=== PATIENT | male | born 1985 | race Caucasian/White ===

== ENCOUNTER 2017-05-18 17:45 | Emergency (ER) | payer SELFPAY ==
[2017-05-18 18:21] VITALS: BP 134/89
[2017-05-18] MEDS ORDERED: SULFAMETHOXAZOLE/TRIMETHOPRIM 800-160 MG TABLET PO ONE (19:27)
[2017-05-18] MEDS ORDERED: CEPHALEXIN 500 MG CAPSULE PO ONE (19:27)
[2017-05-18] MEDS ORDERED: HYDROCODONE/ACETAMINOPHEN 5-325 MG TABLET PO ONE (19:28)
--- NOTE | 2017-05-18 20:18 | RADIOLOGY REPORT (SQ) ---
EXAM DESCRIPTION: FOOT RIGHT COMPLETE COMPLETED DATE/TIME: 05/18/2017 7:43 pm REASON FOR STUDY: foreign body sole of foot COMPARISON: None. NUMBER OF VIEWS: Three views. TECHNIQUE: AP, lateral and oblique radiographic images acquired of the right foot. LIMITATIONS: None. FINDINGS: MINERALIZATION: Normal. BONES: No acute fracture or dislocation. No worrisome bone lesions. JOINTS: No effusions. SOFT TISSUES: Mild plantar soft tissue swelling. No radiopaque foreign body. OTHER: No other significant finding. IMPRESSION: Mild plantar soft tissue swelling. No radiopaque foreign body. TECHNICAL DOCUMENTATION: JOB ID: [id number] [employer]- All Rights Reserved
--- NOTE | 2017-05-18 20:48 | ER Document Report ---
ED General - General Chief Complaint: Foreign Body Stated Complaint: LEFT FOOT PAIN Time Seen by Provider: 05/18/17 19:19 Mode of Arrival: Ambulatory Information source: Patient Notes: 32-year-old male presents with complaints of foot pain. Patient notes he stepped on something a few days prior believes he may have been glass and he has been cutting into his foot with a razor. Patient notes the pain is since worsened TRAVEL OUTSIDE OF THE [place] IN LAST 30 DAYS: No - HPI Onset: Other Onset/Duration: Persistent, Worse Quality of pain: Achy Severity: Mild Pain Level: 1 Associated symptoms: Other Exacerbated by: Walking Relieved by: Denies Similar symptoms previously: No Recently seen / treated by doctor: No - Related Data Allergies/Adverse Reactions: No Known Allergies Allergy (Verified 08/09/16 10:23) Past Medical History - Social History Smoking Status: Current Every Day Smoker Cigarette use (# per day): Yes Chew tobacco use (# tins/day): No Smoking Education Provided: No Frequency of alcohol use: Rare Drug Abuse: None Family History: Reviewed & Not Pertinent Renal/ Medical History: Denies: Hx Peritoneal Dialysis Musculoskeltal Medical History: Reports Hx Musculoskeletal Trauma Traumatic Medical History: Reports: Hx Fractures - right heel and left elbow Surgical Hx: Negative - Immunizations Immunizations up to date: Yes Hx Diphtheria, Pertussis, Tetanus Vaccination: Yes - 2014 Review of Systems - Review of Systems Notes: REVIEW OF SYSTEMS: CONSTITUTIONAL : Denies fever, chills, or sweats. Denies recent illness. EENT: Denies eye, ear, throat, or mouth pain or symptoms. Denies nasal or sinus congestion or discharge. Denies throat, tongue, or mouth swelling or difficulty swallowing. CARDIOVASCULAR: Denies chest pain. Denies palpitations or racing or irregular heart beat. Denies ankle edema. RESPIRATORY: Denies cough, cold, or chest congestion. Denies shortness of breath, difficulty breathing, or wheezing. GASTROINTESTINAL: Denies abdominal pain or distention. Denies nausea, vomiting , or diarrhea. Denies blood in vomitus, stools, or per rectum. Denies black, tarry stools. Denies constipation. GENITOURINARY: Denies difficulty urinating, painful urination, burning, frequency, blood in urine, or discharge. MUSCULOSKELETAL: Denies back or neck pain or stiffness. Denies joint pain or swelling. SKIN: Redness of the right foot HEMATOLOGIC : Denies easy bruising or bleeding. LYMPHATIC: Denies swollen, enlarged glands. NEUROLOGICAL: Denies confusion or altered mental status. Denies passing out or loss of consciousness. Denies dizziness or lightheadedness. Denies headache. Denies weakness or paralysis or loss of use of either side. Denies problems with gait or speech. Denies sensory loss, numbness, or tingling. Denies seizures. PSYCHIATRIC: Denies anxiety or stress. Denies depression, suicidal ideation, or homicidal ideation. ALL OTHER SYSTEMS REVIEWED AND NEGATIVE. Dictation was performed using [employer] voice recognition software PHYSICAL EXAMINATION: GENERAL: Well-appearing, well-nourished and in no acute distress. HEAD: Atraumatic, normocephalic. EYES: Pupils equal round and reactive to light, extraocular movements intact, sclera anicteric, conjunctiva are normal. ENT: Nares patent, oropharynx clear without exudates. Moist mucous membranes. NECK: Normal range of motion, supple without lymphadenopathy LUNGS: Breath sounds clear to auscultation bilaterally and equal. No wheezes rales or rhonchi. HEART: Regular rate and rhythm without murmurs ABDOMEN: Soft, nontender, nondistended abdomen. No guarding, no rebound. No masses appreciated. Musculoskeletal: Normal range of motion, no pitting or edema. No cyanosis. NEUROLOGICAL: Cranial nerves grossly intact. Normal speech, normal gait. Normal sensory, motor exams PSYCH: Normal mood, normal affect. SKIN: Superficial ulceration of the right foot with streaking to the ankle Physical Exam - Vital signs Vitals: Temp Pulse BP Pulse Ox 98.3 F 86 134/89 H 97 05/18/17 18:21 05/18/17 18:21 05/18/17 18:21 05/18/17 18:21 Course - Re-evaluation Re-evalutation: 05/18/17 21:11 Area was anesthetized explored no foreign body was noted incision was made small amount of pus was drained Patient will be placed on antibiotics x-ray noted no foreign body he will be given follow-up with podiatry for further evaluation care After performing a Medical Screening Examination, I estimate there is LOW risk for OPEN FRACTURE, COMPARTMENT SYNDROME, TENDON RUPTURE, ACUTE NEUROVASCULAR INJURY, or RETAINED FOREIGN BODY, thus I consider the discharge disposition reasonable. Also, there is no evidence or peritonitis, sepsis, or toxicity. I have reevaluated this patient multiple times and no significant life threatening changes are noted. The patient and I have discussed the diagnosis and risks, and we agree with discharging home with close follow-up with the understanding that symptoms and presentations can change. We also discussed returning to the Emergency Department immediately if new or worsening symptoms occur. We have discussed the symptoms which are most concerning (e.g., changing or worsening pain, fever, numbness, weakness, cool or painful digits) that necessitate immediate return. - Vital Signs Vital signs: Temp Pulse Resp BP Pulse Ox 98.3 F 86 134/89 H 97 05/18/17 18:21 05/18/17 18:21 05/18/17 18:21 05/18/17 18:21 - Diagnostic Test Radiology reviewed: Image reviewed, Reports reviewed Procedures - Incision and Drainage Right Foot Time completed: 21:00 Type: Simple Anesthetic type: 1% Lidocaine mL's of anesthetic: 15 Blade size: 11 I&D procedure: Sterile dressing applied Incision Method: Incision made by scalpel Amount/type of drainage: Small amount of pus with blood Discharge - Discharge Clinical Impression: Cellulitis Qualifiers: Site of cellulitis: extremity Site of cellulitis of extremity: lower extremity Laterality: right Qualified Code(s): L03.115 - Cellulitis of right lower limb Foot injury Qualifiers: Encounter type: initial encounter Laterality: right Qualified Code(s): S99.921A - Unspecified injury of right foot, initial encounter Condition: Stable Disposition: HOME, SELF-CARE Instructions: Cellulitis ([facility]) Prescriptions: Cephalexin Monohydrate [Keflex 500 mg Capsule] 500 mg PO QID #40 capsule Oxycodone HCl/Acetaminophen [Percocet 5-325 mg Tablet] 1 - 2 tab PO Q4H PRN #15 tablet PRN Reason: Sulfamethoxazole/Trimethoprim [Bactrim Ds Tablet] 2 each PO BID #40 tablet Referrals: HERBERT CARTER DPM [ACTIVE STAFF] - Follow up tomorrow
== END 2017-05-18 20:55 | disposition home or self-care (01) ==
LOC: ER 17:45
PROC: 0H9MXZZ Drainage of Right Foot Skin, External Approach (ICD-10-PCS; principal; 2017-05-18)
DX: L03.115 Cellulitis of right lower limb (principal); S99.921A Unspecified injury of right foot, initial encounter; W22.09XA Striking against other stationary object, initial encounter; F17.210 Nicotine dependence, cigarettes, uncomplicated
CPT/HCPCS: 99283

== ENCOUNTER 2017-05-24 18:26 | Emergency (ER) | payer SELFPAY ==
--- NOTE | 2017-05-24 19:39 | ER Document Report ---
ED Medical Screen (RME) - General Chief Complaint: Foot Pain Stated Complaint: POSSIBLE INFECTION IN LEG Time Seen by Provider: 05/24/17 19:38 Notes: seen by Dr. Mancia and had I and D on the 5th. was doing better till this am when swelling/pain returned. TRAVEL OUTSIDE OF THE [place] IN LAST 30 DAYS: No - Related Data Allergies/Adverse Reactions: No Known Allergies Allergy (Verified 05/24/17 19:31) Past Medical History - Social History Chew tobacco use (# tins/day): No Frequency of alcohol use: Occasional Drug Abuse: None Renal/ Medical History: Denies: Hx Peritoneal Dialysis Musculoskeltal Medical History: Reports Hx Musculoskeletal Trauma Traumatic Medical History: Reports: Hx Fractures - right heel and left elbow - Immunizations Immunizations up to date: Yes Hx Diphtheria, Pertussis, Tetanus Vaccination: Yes - 2014 History of Influenza Vaccine for 05/2017 - 10/2017 Season: No Physical Exam - Vital signs Vitals: Temp Pulse Resp BP Pulse Ox 98.4 F 103 H 14 122/80 99 05/24/17 18:34 05/24/17 18:34 05/24/17 18:34 05/24/17 18:34 05/24/17 18:34 Course - Vital Signs Vital signs: Temp Pulse Resp BP Pulse Ox 98.4 F 103 H 14 122/80 99 05/24/17 18:34 05/24/17 18:34 05/24/17 18:34 05/24/17 18:34 05/24/17 18:34
[2017-05-24] MEDS ORDERED: LIDOCAINE 1% INJ-PF (10 MG/ML) 30 ML SDV INJ ONE (21:10)
--- NOTE | 2017-05-24 21:29 | ER Document Report ---
ED General - General Chief Complaint: Foot Pain Stated Complaint: POSSIBLE INFECTION IN LEG Time Seen by Provider: 05/24/17 19:38 Mode of Arrival: Ambulatory Information source: Patient Notes: 32-year-old male presents with complaints of right foot pain. Patient was seen by myself approximately 6 days ago at which time incision and drainage was made and patient was started on antibiotics. He notes symptoms have completely resolved and he did not follow-up with podiatry as I had requested since he was asymptomatic however today he had sudden pain and redness again. Patient denies any fevers denies any new infectious process TRAVEL OUTSIDE OF THE [place] IN LAST 30 DAYS: No - HPI Onset: Other Onset/Duration: Intermittent, Worse Quality of pain: Sharp Severity: Mild Pain Level: 1 Associated symptoms: None Exacerbated by: Walking Relieved by: Denies Similar symptoms previously: Yes Recently seen / treated by doctor: Yes - Related Data Allergies/Adverse Reactions: No Known Allergies Allergy (Verified 05/24/17 19:31) Past Medical History - Social History Smoking Status: Never Smoker Cigarette use (# per day): No Chew tobacco use (# tins/day): No Smoking Education Provided: No Frequency of alcohol use: Occasional Drug Abuse: None Family History: Reviewed & Not Pertinent Renal/ Medical History: Denies: Hx Peritoneal Dialysis Musculoskeltal Medical History: Reports Hx Musculoskeletal Trauma Traumatic Medical History: Reports: Hx Fractures - right heel and left elbow - Immunizations Immunizations up to date: Yes Hx Diphtheria, Pertussis, Tetanus Vaccination: Yes - 2014 Review of Systems - Review of Systems Notes: REVIEW OF SYSTEMS: CONSTITUTIONAL : Denies fever, chills, or sweats. Denies recent illness. EENT: Denies eye, ear, throat, or mouth pain or symptoms. Denies nasal or sinus congestion or discharge. Denies throat, tongue, or mouth swelling or difficulty swallowing. CARDIOVASCULAR: Denies chest pain. Denies palpitations or racing or irregular heart beat. Denies ankle edema. RESPIRATORY: Denies cough, cold, or chest congestion. Denies shortness of breath, difficulty breathing, or wheezing. GASTROINTESTINAL: Denies abdominal pain or distention. Denies nausea, vomiting , or diarrhea. Denies blood in vomitus, stools, or per rectum. Denies black, tarry stools. Denies constipation. GENITOURINARY: Denies difficulty urinating, painful urination, burning, frequency, blood in urine, or discharge. MUSCULOSKELETAL: Denies back or neck pain or stiffness. Denies joint pain or swelling. SKIN: Pain redness on the sole midfoot right HEMATOLOGIC : Denies easy bruising or bleeding. LYMPHATIC: Denies swollen, enlarged glands. NEUROLOGICAL: Denies confusion or altered mental status. Denies passing out or loss of consciousness. Denies dizziness or lightheadedness. Denies headache. Denies weakness or paralysis or loss of use of either side. Denies problems with gait or speech. Denies sensory loss, numbness, or tingling. Denies seizures. PSYCHIATRIC: Denies anxiety or stress. Denies depression, suicidal ideation, or homicidal ideation. ALL OTHER SYSTEMS REVIEWED AND NEGATIVE. Dictation was performed using [employer] voice recognition software PHYSICAL EXAMINATION: GENERAL: Well-appearing, well-nourished and in no acute distress. HEAD: Atraumatic, normocephalic. EYES: Pupils equal round and reactive to light, extraocular movements intact, sclera anicteric, conjunctiva are normal. ENT: Nares patent, oropharynx clear without exudates. Moist mucous membranes. NECK: Normal range of motion, supple without lymphadenopathy LUNGS: Breath sounds clear to auscultation bilaterally and equal. No wheezes rales or rhonchi. HEART: Regular rate and rhythm without murmurs ABDOMEN: Soft, nontender, nondistended abdomen. No guarding, no rebound. No masses appreciated. Musculoskeletal: Normal range of motion, no pitting or edema. No cyanosis. NEUROLOGICAL: Cranial nerves grossly intact. Normal speech, normal gait. Normal sensory, motor exams PSYCH: Normal mood, normal affect. SKIN: Midfoot right sole noted to be erythematous mild streaking to the lateral aspect of the bottom of the foot Physical Exam - Vital signs Vitals: Temp Pulse Resp BP Pulse Ox 98.4 F 103 H 14 122/80 99 05/24/17 18:34 05/24/17 18:34 05/24/17 18:34 05/24/17 18:34 05/24/17 18:34 Course - Re-evaluation Re-evalutation: 05/25/17 00:17 Area was anesthetized incised and drained, small amount of pus was noted. I did irrigate with soap and water extensively, the wound itself is deeper now than it was before but there was no bony involvement on palpation of. I again was unable to find a foreign body, patient will be placed on doxycycline and instructed that he must follow-up with podiatry nonetheless as I am concerned this can worsen. Patient states he understands and will do so this time After performing a Medical Screening Examination, I estimate there is LOW risk for OPEN FRACTURE, COMPARTMENT SYNDROME, TENDON RUPTURE, ACUTE NEUROVASCULAR INJURY, or RETAINED FOREIGN BODY, thus I consider the discharge disposition reasonable. Also, there is no evidence or peritonitis, sepsis, or toxicity. I have reevaluated this patient multiple times and no significant life threatening changes are noted. The patient and I have discussed the diagnosis and risks, and we agree with discharging home with close follow-up with the understanding that symptoms and presentations can change. We also discussed returning to the Emergency Department immediately if new or worsening symptoms occur. We have discussed the symptoms which are most concerning (e.g., changing or worsening pain, fever, numbness, weakness, cool or painful digits) that necessitate immediate return. - Vital Signs Vital signs: Temp Pulse Resp BP Pulse Ox 98.2 F 96 18 126/83 H 100 05/24/17 22:45 05/24/17 22:45 05/24/17 22:45 05/24/17 22:45 05/24/17 22:45 Procedures - Incision and Drainage Right Foot Time completed: 22:00 Type: Simple Anesthetic type: 1% Lidocaine mL's of anesthetic: 10 Blade size: 11 I&D procedure: Betadine prep applied, Chlorprep applied, Sterile dressing applied Incision Method: Incision made by scalpel Amount/type of drainage: Small amount of pus Discharge - Discharge Clinical Impression: Cellulitis Qualifiers: Site of cellulitis: extremity Site of cellulitis of extremity: lower extremity Laterality: right Qualified Code(s): L03.115 - Cellulitis of right lower limb Foot injury Qualifiers: Encounter type: initial encounter Laterality: right Qualified Code(s): S99.921A - Unspecified injury of right foot, initial encounter Condition: Stable Disposition: HOME, SELF-CARE Instructions: Cellulitis ([facility]) Prescriptions: Doxycycline Hyclate 100 mg PO BID #20 capsule Oxycodone HCl/Acetaminophen [Percocet 5-325 mg Tablet] 1 - 2 tab PO Q4H PRN #15 tablet PRN Reason: Referrals: HERBERT CARTER DPM [ACTIVE STAFF] - Follow up tomorrow
[2017-05-24] MEDS ORDERED: CLINDAMYCIN HCL 150 MG CAPSULE PO ONE (22:42)
[2017-05-24] MEDS ORDERED: DOXYCYCLINE HYCLATE 100 MG TABLET PO ONE (22:43)
[2017-05-24 23:09] VITALS: BP 126/83
== END 2017-05-24 23:11 | disposition home or self-care (01) ==
LOC: ER 18:26
PROC: 0H9MXZZ Drainage of Right Foot Skin, External Approach (ICD-10-PCS; principal; 2017-05-24)
DX: S99.921A Unspecified injury of right foot, initial encounter (principal); L03.115 Cellulitis of right lower limb; M79.671 Pain in right foot; X58.XXXA Exposure to other specified factors, initial encounter
CPT/HCPCS: 99283

== ENCOUNTER 2017-05-26 13:32 | Observation (INO) | payer SELFPAY ==
--- NOTE | 2017-05-26 16:21 | ER Document Report ---
ED Medical Screen (RME) - General Mode of Arrival: Ambulatory Information source: Patient TRAVEL OUTSIDE OF THE [place] IN LAST 30 DAYS: No <PRISCILLA MELENDEZ - Last Filed: 05/26/17 17:57> <MELISSA TAYLOR - Last Filed: 05/26/17 21:05> - General Chief Complaint: Foot Pain Stated Complaint: RT FOOT PAIN Time Seen by Provider: 05/26/17 16:00 Notes: Patient reports to the emergency department today with complaints of right foot pain. Patient [place] the [place] and stepped on something but he does not know what it was. Patient was seen here 1 week ago put on Bactrim and Keflex and the wound was explored with no foreign body removed. Patient was seen again 2 days ago secondary to increasing pain and swelling, wound was explored again and again no foreign body was found, patient was switched on to doxycycline. Patient states he has been taking his antibiotics as prescribed. Patient states it is a little more swollen and a little more red than two days ago. (PRISCILLA MELENDEZ) - Related Data Allergies/Adverse Reactions: No Known Allergies Allergy (Verified 05/26/17 15:51) Past Medical History - General Information source: Patient - Social History Cigarette use (# per day): No Chew tobacco use (# tins/day): No Frequency of alcohol use: None Drug Abuse: None Lives with: Family Family history: Reviewed & Not Pertinent Musculoskeltal Medical History: Reports Hx Musculoskeletal Trauma Traumatic Medical History: Reports: Hx Fractures - right heel and left elbow Surgical Hx: Negative - Immunizations Immunizations up to date: Yes Hx Diphtheria, Pertussis, Tetanus Vaccination: Yes - 2014 History of Influenza Vaccine for 05/2017 - 10/2017 Season: No <PRISCILLA MELENDEZ - Last Filed: 05/26/17 17:57> Review of Systems - Review of Systems Constitutional: No symptoms reported EENT: No symptoms reported Cardiovascular: No symptoms reported Respiratory: No symptoms reported Gastrointestinal: No symptoms reported Genitourinary: No symptoms reported Male Genitourinary: No symptoms reported Musculoskeletal: No symptoms reported Skin: See HPI, Other - lac to right bottom of foot Hematologic/Lymphatic: No symptoms reported Neurological/Psychological: No symptoms reported -: Yes All other systems reviewed and negative <PRISCILLA MELENDEZ - Last Filed: 05/26/17 17:57> Physical Exam <PRISCILLA MELENDEZ - Last Filed: 05/26/17 17:57> <MELISSA TAYLOR - Last Filed: 05/26/17 21:05> - Vital signs Vitals: Temp Pulse Resp BP Pulse Ox 98.8 F 109 H 16 123/89 H 99 05/26/17 14:08 05/26/17 14:08 05/26/17 14:08 05/26/17 14:08 05/26/17 14:08 - Notes Notes: Physical Exam: General: Alert, appears well. HEENT: Normocephalic. Atraumatic. PERRLA. Extraocular movements intact. Oropharynx clear. Neck: Supple. Respiratory: No respiratory distress. Abdominal: Normal Inspection. No distension. Extremities: Moves all four extremities. Right Neurological: Normal cognition. AAOx4. Normal speech. Psychological: Normal affect. Normal Mood. Skin: Area to bottom of right foot with swelling, recent incision, no drainage. (PRISCILLA MELENDEZ) Course - Laboratory Result Diagrams: 05/26/17 16:30 05/26/17 16:30 <PRISCILLA MELENDEZ - Last Filed: 05/26/17 17:57> - Laboratory Result Diagrams: 05/26/17 19:52 05/26/17 17:35 <MELISSA TAYLOR - Last Filed: 05/26/17 21:05> - Vital Signs Vital signs: Temp Pulse Resp BP Pulse Ox 98.8 F 109 H 16 123/89 H 99 05/26/17 14:08 05/26/17 14:08 05/26/17 14:08 05/26/17 14:08 05/26/17 14:08 - Laboratory Laboratory results interpreted by me: 05/26/17 19:52 WBC 12.8 H Scribe Documentation - Scribe Written by Scribe:: Santhosh Kerr, 05/26/2017 1807 acting as scribe for :: Al <PRISCILLA MELENDEZ - Last Filed: 05/26/17 17:57>
[2017-05-26] MEDS ORDERED: CEFTRIAXONE 1 GM/D5W RTU 1 GM/50 ML RTUPB IV ONE (16:22)
--- NOTE | 2017-05-26 18:11 | RADIOLOGY REPORT (SQ) ---
EXAM DESCRIPTION: CT RT LOWER EXTREMITY WITH COMPLETED DATE/TIME: 05/26/2017 5:55 pm REASON FOR STUDY: CT foot due to worsening infection COMPARISON: Radiograph from 05/18/2017 TECHNIQUE: Axial imaging performed through the right foot with reformatted coronal and sagittal imag ing windowed for bone and soft tissues. Images saved to PACS. 3D IMAGING: Were 3D images as MIP, SSD, or volume rendering performed at the work station? No. All CT scanners at this facility use dose modulation, iterative reconstruction, and/or weight based d osing when appropriate to reduce radiation dose to as low as reasonably achievable (ALARA). [facility]: Dose Right [facility]: CareDose [facility]: Dose Right [facility]: Teradose 4D [facility]: [employer] LIMITATIONS: None. RADIATION DOSE: Up-to-date CT equipment and radiation dose reduction techniques were employed. CTDIv ol: 4.1 mGy. DLP: 111 mGy-cm. mGy. FINDINGS: SOFT TISSUES: Diffuse subcutaneous edema involving the plantar aspect of the foot. No def inite abscess/drainable fluid collection. No soft tissue mass. BONES: No acute fracture. No dislocation. MINERALIZATION: Normal. OTHER: No other significant finding. IMPRESSION: NO ACUTE OSSEOUS ABNORMALITY. SUBCUTANEOUS EDEMA COMPATIBLE WITH HISTORY OF CELLULITIS. NO DEFINITE DRAINABLE FLUID COLLECTION/ABS CESS. TECHNICAL DOCUMENTATION: JOB ID: [id number] Quality ID # [id number]: Final reports with documentation of one or more dose reduction techniques (e.g., Au tomated exposure control, adjustment of the mA and/or kV according to patient size, use of iterative reconstruction technique) 2010 [employer]- All Rights Reserved
[2017-05-26 18:19] LABS: ANION GAP 10 (5-19); BLOOD UREA NITROGEN 18 mg/dL (7-20); CALCIUM 9.5 mg/dL (8.4-10.2); CARBON DIOXIDE 28 mmol/L (22-30); CHLORIDE 104 mmol/L (98-107); CREATININE RESULT 0.97 mg/dL (0.52-1.25); GLUCOSE 96 mg/dL (75-110); POTASSIUM 4.8 mmol/L (3.6-5.0); SODIUM 142.1 mmol/L (137-145)
[2017-05-26] MEDS ORDERED: VANCOMYCIN HCL INJ 1000 MG VIAL IV ONE (18:38)
--- NOTE | 2017-05-26 18:41 | ER Document Report ---
ED General - General Chief Complaint: Foot Pain Stated Complaint: RT FOOT PAIN Time Seen by Provider: 05/26/17 16:00 Mode of Arrival: Ambulatory Notes: Patient is a 32-year-old male without past medical history who presents for the third time in 9 days for ongoing pain to the right lower extremity. Patient was seen initially on 18 May for possible puncture wound to the bottom of the right foot [place]. He was placed on antibiotics at that time and initially had improvement of symptoms but then again had progressive worsening of his symptoms and re-presented to the emergency department 2 days ago. At that point he was started on doxycycline but states that he is continued to have worsening of his pain, spreading of the redness on the foot and has had hot and cold sweats. He has not had similar symptoms in the past. He has no history of diabetes or peripheral vascular disease. Does describe the pain as a severe, constant, dull, aching pain worsened by attempts at bearing weight. Nothing improves the pain. TRAVEL OUTSIDE OF THE [place] IN LAST 30 DAYS: No - Related Data Allergies/Adverse Reactions: No Known Allergies Allergy (Verified 05/26/17 15:51) Past Medical History - General Information source: Patient - Social History Smoking Status: Current Every Day Smoker Cigarette use (# per day): No Chew tobacco use (# tins/day): No Frequency of alcohol use: None Drug Abuse: None Lives with: Family Family History: Reviewed & Not Pertinent Patient has suicidal ideation: No Patient has homicidal ideation: No Renal/ Medical History: Denies: Hx Peritoneal Dialysis Musculoskeltal Medical History: Reports Hx Musculoskeletal Trauma Traumatic Medical History: Reports: Hx Fractures - right heel and left elbow Surgical Hx: Negative - Immunizations Immunizations up to date: Yes Hx Diphtheria, Pertussis, Tetanus Vaccination: Yes - 2014 Review of Systems - Review of Systems Notes: Constitutional: Negative for fever. HENT: Negative for sore throat. Eyes: Negative for visual changes. Cardiovascular: Negative for chest pain. Respiratory: Negative for shortness of breath. Gastrointestinal: Negative for abdominal pain, vomiting or diarrhea. Genitourinary: Negative for dysuria. Musculoskeletal: Positive for right foot pain Skin: Positive for rash. Neurological: Negative for headaches, weakness or numbness. 10 point ROS negative except as marked above and in HPI. Physical Exam - Vital signs Vitals: Temp Pulse Resp BP Pulse Ox 98.8 F 109 H 16 123/89 H 99 05/26/17 14:08 05/26/17 14:08 05/26/17 14:08 05/26/17 14:08 05/26/17 14:08 Interpretation: Tachycardic Notes: PHYSICAL EXAMINATION: GENERAL: Well-appearing, well-nourished and in no acute distress. HEAD: Atraumatic, normocephalic. EYES: Pupils equal round and reactive to light, extraocular movements intact, sclera anicteric, conjunctiva are normal. ENT: nares patent, oropharynx clear without exudates. Moist mucous membranes. NECK: Normal range of motion, supple without lymphadenopathy LUNGS: Breath sounds clear to auscultation bilaterally and equal. No wheezes rales or rhonchi. HEART: Regular tachycardia without murmurs ABDOMEN: Soft, nontender, normoactive bowel sounds. No guarding, no rebound. No masses appreciated. EXTREMITIES: Normal range of motion, no pitting or edema. No cyanosis. NEUROLOGICAL: No focal neurological deficits. Moves all extremities spontaneously and on command. PSYCH: Normal mood, normal affect. SKIN: Warm, Dry, normal turgor, erythema extending from the plantar surface of the medial aspect of the right foot extending to the top of the right medial one third of the dorsal foot Course - Re-evaluation Re-evalutation: 05/26/17 18:39 Patient presents with extensive erythema of the right foot with associated swelling. There is a 0.5 cm open wound to the plantar medial aspect of the foot which appears to be the source of the infection and prior incision and drainage. CT the lower extremity was ordered in triage and did not demonstrate any acute findings. Patient is otherwise nontoxic in appearance but does have exquisite tenderness on palpation of any area of the right foot. My concern at this point is that the patient has really undergone appropriate outpatient antibiotic therapy with cephalexin, trimethoprim sulfamethoxazole, and doxycycline without any improvement of his symptoms and actually has had progressive worsening of his pain. Diagnostic consideration would include osteomyelitis of the patient has no risk factors for this diagnosis. Given that this is his third return visit to the emergency department and he is clinically worsening I do not believe he should be discharged home. Will obtain an MRI to look for osteomyelitis or deep space abscess 05/26/17 21:39 MRI does demonstrate a deep abscess of the right foot. I discussed with the surgeon personal carer Dr. Burrows who will admit and surgically managed. - Vital Signs Vital signs: Temp Pulse Resp BP Pulse Ox 98.1 F 68 16 121/61 99 05/27/17 02:14 05/27/17 02:14 05/27/17 02:14 05/27/17 02:14 05/27/17 02:14 - Laboratory Result Diagrams: 05/26/17 19:52 05/26/17 17:35 Laboratory results interpreted by me: 05/26/17 19:52 WBC 12.8 H - Diagnostic Test Radiology reviewed: Image reviewed, Reports reviewed Discharge - Discharge Clinical Impression: Foot abscess, right, Cellulitis of foot, right Sepsis Qualifiers: Sepsis type: sepsis due to unspecified organism Qualified Code(s): A41.9 - Sepsis, unspecified organism Condition: Fair Disposition: ADMITTED INPATIENT Admitting Provider: Nelsonist Mary Ann Burrows Unit Admitted: Surgical Floor
[2017-05-26 20:26] LABS: ABSOLUTE EOSINOPHILS # (AUTO) 0.4 10^3/uL (0.0-0.6); ABSOLUTE LYMPHOCYTES (AUTO) 4.3 10^3/uL (0.5-4.7); ABSOLUTE MONOCYTES (AUTO) 0.9 10^3/uL (0.1-1.4); ABSOLUTE NEUT (AUTO) 7.2 10^3/uL (1.7-8.2); BASOPHILS % (AUTO) 0.2 % (0-2); EOSINOPHILS % (AUTO) 3.1 % (0-6); HEMATOCRIT 40.8 % (37.9-51.0); HEMOGLOBIN 13.9 g/dL (13.5-17.0); HGB HCT DIFFERENCE 0.9; LYMPHOCYTES % (AUTO) 33.4 % (13-45); MEAN CORPUSCULAR HEMOGLOBIN 29.2 pg (27.0-33.4); MEAN CORPUSCULAR HGB CONC 34.1 g/dL (32.0-36.0); MEAN CORPUSCULAR VOLUME 86 fl (80-97); MONOCYTES % (AUTO) 7.1 % (3-13); RED BLOOD COUNT 4.77 10^6/uL (4.35-5.55); RED CELL DISTRIBUTION WIDTH 12.8 % (11.5-14.0); SEGMENTED NEUTROPHILS % (AUTO) 56.2 % (42-78); WHITE BLOOD COUNT 12.8 10^3/uL (4.0-10.5)
[2017-05-26] MEDS: MORPHINE SULFATE 10 MG/ML INJ IV PRN (20:46)
--- NOTE | 2017-05-26 21:12 | RADIOLOGY REPORT (SQ) ---
EXAM DESCRIPTION: MRI RT LOWER EXTREMITY WITHOUT COMPLETED DATE/TIME: 05/26/2017 8:23 pm REASON FOR STUDY: eval osteo of right foot COMPARISON: CORRELATION MADE TO CT FROM 05/26/2017 AND RADIOGRAPH FROM 05/18/2017. TECHNIQUE: Multiplanar imaging to include fat and fluid sensitive sequences. LIMITATIONS: LIMITED BY LACK OF CONTRAST. FINDINGS: BONE MARROW: No marrow signal alteration. Specifically no marrow replacement or marrow ed xavier. No evidence for osteomyelitis. No cortical break through. SOFT TISSUES: Puncture wound is visualized involving the plantar aspect of the foot seen on series 7, image 13 and series 4, image 21. No definite retained foreign body identified. There is diffuse lu bcutaneous edema with additional fluid signal within and surrounding the flexor digitorum brevis and longus muscles with a 2.6 x 0.6 cm focal fluid collection deep to the flexor digitorum longus. OTHER: No other significant finding. IMPRESSION: NO EVIDENCE FOR OSTEOMYELITIS. SOFT TISSUE INJURY INVOLVING THE PLANTAR ASPECT OF THE FOOT WITH SIGNIFICANT INFLAMMATORY CHANGE INVO LVING THE FLEXOR DIGITORUM BREVIS AND LONGUS MUSCLES WITH 2.6 MM FLUID COLLECTION DEEP TO THE FLEXOR DIGITORUM LONGUS CONCERNING FOR DEEP SOFT TISSUE INFECTION/DEVELOPING ABSCESS. SURGICAL CONSULTATION RECOMMENDED. TECHNICAL DOCUMENTATION: JOB ID: [id number] [employer]- All Rights Reserved
[2017-05-26] MEDS ORDERED: ONDANSETRON HCL INJ/PF 4 MG/2 ML SDV IV PRN ×2 (22:36→22:37)
--- NOTE | 2017-05-26 22:58 | HISTORY AND PHYSICAL E ---
History and Physical NAME: JO JACKMAN : 1985 AGE: 32Y ADMITTED: 05/26/2017 ROOM: ED07 CHIEF COMPLAINT: Right foot pain. HISTORY OF PRESENT ILLNESS: This is a 32-year-old male who stepped on something while fishing about one and a half weeks ago. Two days later, he developed more pains and swelling and a week later went to the emergency room. It was partially drained and given p.o. antibiotics. Two days ago came back to the emergency room, again attempted to be drained. Today came back with more pains and swelling and had an MRI which showed some collection underneath the right foot. PAST HISTORY: History of cellulitis of the left arm, treated with antibiotics. SOCIAL HISTORY: Smokes about half a pack a day and drinks socially. No drug use. ALLERGIES: None known. FAMILY HISTORY: Both parents are healthy. REVIEW OF SYSTEMS: Denies any chest pain, shortness of breath, diarrhea, constipation, or dysuria. No seizures or hearing or visual problems. No history of anxiety or depression. Rest of the systems are negative. Extremities as in HPI. PHYSICAL EXAMINATION GENERAL: Well-developed, well-nourished, 32-year-old male, alert and oriented, complaining of a lot of pain on the right foot. NECK: Supple. No thyromegaly. LUNGS: Clear. HEART: Regular sinus rhythm. ABDOMEN: Soft, nontender. plantar area. He has swelling. It is markedly tender and erythematous. IMPRESSION: Abscess of the right foot. PLANS: 1. Patient to have IV antibiotics. 2. N.P.O. from midnight. 3. Possible incision and drainage of the right foot tomorrow. DICTATING PHYSICIAN: JORGE RIBEIRO M.D. [id number] PHY#: [id number] ID: [id number] JOB#: [id number] ACCT: [id number] cc:Teo GARDNER MD
[2017-05-26] MEDS: HYDROMORPHONE HCL INJ/PF 2 MG/ML AMPULE IV PRN (22:59)
[2017-05-27] MEDS: MORPHINE SULFATE 10 MG/ML INJ IV PRN (01:14)
[2017-05-27] MEDS: CLINDAMYCIN 600 MG/D5W RTU 600 MG/50 ML RTUPB IV SCH ×2 (01:15→05:04)
[2017-05-27] MEDS: HYDROMORPHONE HCL INJ/PF 2 MG/ML AMPULE IV PRN ×7 (02:07→20:17)
[2017-05-27] MEDS ORDERED: DEXTROSE 50%-WATER 25 GM/50 ML DISP.SYRIN IV PRN ×2 (04:04)
[2017-05-27] MEDS ORDERED: GLUCAGON,HUMAN RECOMB 1 MG INJ SUBCUT PRN (04:04)
[2017-05-27] MEDS: NORMAL SALINE 1000 ML 1,000 ML IV PRN ×2 (04:11→23:26)
[2017-05-27] MEDS ORDERED: FENTANYL CITRATE INJ/PF 100 MCG/2 ML AMPUL ONE (10:23)
[2017-05-27] MEDS ORDERED: PROPOFOL INJ 200 MG/20 ML VIAL IV ONE (10:23)
[2017-05-27] MEDS ORDERED: MIDAZOLAM 2 MG/2 ML INJ ONE (10:23)
[2017-05-27] MEDS ORDERED: MEPERIDINE HCL/PF INJ 25 MG/1 ML DISP.SYRIN IV PRN (11:03)
[2017-05-27] MEDS ORDERED: ONDANSETRON HCL INJ/PF 4 MG/2 ML SDV IV PRN (11:03)
[2017-05-27] MEDS ORDERED: DIPHENHYDRAMINE HCL 50 MG/ML VIAL IV PRN (11:03)
[2017-05-27] MEDS ORDERED: PROMETHAZINE HCL INJ 25 MG/1 ML VIAL IV PRN (11:03)
[2017-05-27] MEDS ORDERED: FENTANYL CITRATE INJ/PF 100 MCG/2 ML AMPUL IV PRN ×3 (11:03)
[2017-05-27] MEDS ORDERED: HYDROCODONE/ACETAMINOPHEN 5-325 MG TABLET PO PRN (11:23)
[2017-05-27] MEDS: PIPERACILLIN SODIUM/TAZOBACTAM 3.375 GM in NORMAL SALINE 100 ML IV SCH ×2 (13:32→23:18)
[2017-05-27] MEDS: KETOROLAC TROMETHAMINE INJ/PF 30 MG/1 ML SDV IV SCH ×2 (13:32→23:18)
[2017-05-28] MEDS: HYDROMORPHONE HCL INJ/PF 2 MG/ML AMPULE IV PRN ×3 (00:27→09:13)
[2017-05-28] MEDS: PIPERACILLIN SODIUM/TAZOBACTAM 3.375 GM in NORMAL SALINE 100 ML IV SCH ×2 (05:39→14:44)
[2017-05-28] MEDS: KETOROLAC TROMETHAMINE INJ/PF 30 MG/1 ML SDV IV SCH ×2 (05:39→14:45)
[2017-05-28 15:55] VITALS: BP 121/61
--- NOTE | 2017-05-28 16:13 | DISCHARGE SUMMARY E ---
Discharge Summary NAME: JO JACKMAN : 1985 AGE: 32Y ADMITTED: 05/27/2017 DISCHARGED: 05/28/2017 ADMISSION DIAGNOSIS: Right foot cellulitis from trauma, penetrating injury with no foreign body and small abscess/cellulitis. DISCHARGE DIAGNOSIS: Right foot cellulitis from trauma, penetrating injury with no foreign body and small abscess/cellulitis. OPERATIONS: Incisional drainage of the right foot abscess. HISTORY OF PRESENT ILLNESS: The patient placed on IV antibiotic until today. He is doing well, afebrile. Cellulitis has resolved and the wound is clean. He is being discharged home with Augmentin p.o. for 1 week and [place] for the pain. FOLLOWUP PLAN: Return to office in 1 week. The patient explained about wound care. Call the office or present to the ER if he has any fever. DICTATING PHYSICIAN: NEIL LE M.D. [id number] PHY#: [id number] ID: [id number] JOB#: [id number] ACCT: [id number] cc:[facility], NEIL SEVILLA MD, M.D, M.D. [facility] >
--- NOTE | 2017-05-29 08:07 | OPERATIVE REPORT E ---
Operative Report NAME: JO JACKMAN : 1985 AGE: 32Y DATE OF SURGERY: 05/27/2017 ROOM: 419 PREOPERATIVE DIAGNOSIS: Right foot cellulitis along with right plantar aspect abscess formation. POSTOPERATIVE DIAGNOSIS: Right foot cellulitis along with right plantar aspect abscess formation. OPERATION: Incision and drainage of the abscess in the right foot on the plantar aspect. SURGEON: NEIL LE M.D. ANESTHESIA: General. BLOOD LOSS: Less than 5 mL. SPECIMENS: Infected fluid sent for culture. HISTORY AND INDICATIONS: The patient was outside in a fishing area and got piercing to right foot. No foreign body but developed cellulitis and pain and drainage. Patient was admitted to the hospital for antibiotic therapy and then developed possible abscess that needed to be drained. Explained about indications for the operation, risks, benefits and complications including but not limited to , bone infection, bleeding, pain, possibility for reoperation, possibility for limb loss all thoroughly explained. The patient was taken to the operating room after informed consent. PROCEDURE: After induction of general anesthesia right lower extremity cleaned and draped in a sterile field. Area of piercing injury opening nearer to the sole of the right foot located in the mid area explored after making a small about a cm musculature fascial plane. No foreign body detected. No wound. No foreign body seen. Infected looking fluid drained out and sent for culture. The wound was copiously irrigated and suctioned out and the fascia was opened up. No pus in the fascia. No fascitis. Wound suctioned out. Patient was taken to recovery room in good condition. DICTATING PHYSICIAN: NEIL LE M.D. [id number] PHY#: [id number] ID: [id number] JOB#: [id number] ACCT: [id number] cc:NEIL LE M.D. > [facility]
== END 2017-05-28 16:29 | disposition home or self-care (01) ==
LOC: ER 13:32 → EH 21:52 → UNDOADMOB 21:52 → INTOOBSV 21:52 → EH 05-27 03:25 → 4W 05-27 03:25 → EH 05-27 04:01 → 4W 05-27 04:01
PROVIDERS: ATTEND Colon & Rectal Surgery
PROC: 0J9Q3ZX Drainage of Right Foot Subcutaneous Tissue and Fascia, Percutaneous Approach, Diagnostic (ICD-10-PCS; principal; 2017-05-27 10:00)
DX: S91.331S Puncture wound without foreign body, right foot, sequela (principal); L03.115 Cellulitis of right lower limb; L02.611 Cutaneous abscess of right foot; W26.9XXS Contact with unspecified sharp object(s), sequela; F17.210 Nicotine dependence, cigarettes, uncomplicated; R00.0 Tachycardia, unspecified
CPT/HCPCS: 99284; 96365; 96367; 36415; 87040 ×2; 87070; 87205; 85025; 80048; 73718; 73701; 28899; J2250; J3010; J1885 ×2; J2270 ×2; J1170 ×3; J2405; J7030; J2704; J3370; J0696; J2543 ×2; 01470; G0378

== ENCOUNTER 2017-06-11 21:04 | Emergency (ER) | payer SELFPAY ==
--- NOTE | 2017-06-11 21:51 | ER Document Report ---
HPI - HPI Pain Level: 3 Notes: Patient is a 32-year-old male who presents ED complaining of right foot pain, swelling, redness status post foreign body removal 2 weeks ago. Patient states that he finished antibiotics about a week ago. Patient states that he was not having any pain, redness, or swelling to his foot thereafter, but this started to get worse again 3 days ago. Patient states that he has noticed a red streak across the top of his foot intermittently over the last day. Patient states that he is still eating and drinking without any difficulties. Patient denies any other significant medical history or drug allergies. Denies any IV drug use. Denies any headache, fever, chest pain, palpitations, syncope, cough, shortness of breath, wheeze, dyspnea, abdominal pain, nausea/vomiting/diarrhea, numbness/tingling, muscle paralysis/weakness. - ROS Notes: REVIEW OF SYSTEMS: CONSTITUTIONAL : Denies fever, chills, or sweats. Denies recent illness. EENT: Denies eye, ear, throat, or mouth pain or symptoms. Denies nasal or sinus congestion or discharge. Denies throat, tongue, or mouth swelling or difficulty swallowing. CARDIOVASCULAR: Denies chest pain. Denies palpitations or racing or irregular heart beat. RESPIRATORY: Denies cough, cold, or chest congestion. Denies shortness of breath, difficulty breathing, or wheezing. GASTROINTESTINAL: Denies abdominal pain or distention. Denies nausea, vomiting , or diarrhea. Denies blood in vomitus, stools, or per rectum. Denies black, tarry stools. Denies constipation. GENITOURINARY: Denies difficulty urinating, painful urination, burning, frequency, blood in urine, or discharge. MUSCULOSKELETAL: see hpi SKIN: see hpi NEUROLOGICAL: Denies confusion or altered mental status. Denies passing out or loss of consciousness. Denies dizziness or lightheadedness. Denies headache. Denies weakness or paralysis or loss of use of either side. Denies problems with gait or speech. Denies sensory loss, numbness, or tingling. ALL OTHER SYSTEMS REVIEWED AND NEGATIVE. Dictation was performed using [employer] voice recognition software - REPRODUCTIVE Reproductive: DENIES: : - DERM Skin Color: Normal Past Medical History - Social History Smoking Status: Never Smoker Family History: Reviewed & Not Pertinent Patient has suicidal ideation: No Patient has homicidal ideation: No Renal/ Medical History: Denies: Hx Peritoneal Dialysis Musculoskeltal Medical History: Reports Hx Musculoskeletal Trauma Traumatic Medical History: Reports: Hx Fractures - right heel and left elbow - Immunizations Immunizations up to date: Yes Hx Diphtheria, Pertussis, Tetanus Vaccination: Yes - 2014 Vertical Provider Document - CONSTITUTIONAL Agree With Documented VS: Yes Notes: PHYSICAL EXAMINATION: GENERAL: Well-appearing, well-nourished and in no acute distress. LUNGS: Breath sounds clear to auscultation bilaterally and equal. No wheezes rales or rhonchi. HEART: Regular rate and rhythm without murmurs, rubs, gallops. Musculoskeletal: Rt foot: + swelling, pitting edema (1+) noted. + erythema to the plantar foot around surgical site with warmth and tenderness. No obvious streaks noted. Surgical site does appear erythematous and is tender to touch. N/ V intact distal. FROM to passive/active. Strength 5+/5. Extremities: No cyanosis, clubbing, or edema b/l. Peripheral pulses 2+. Capillary refill less than 3 seconds. NEUROLOGICAL: Cranial nerves grossly intact. Normal speech, normal gait. Normal sensory, motor exams PSYCH: Normal mood, normal affect. SKIN: see MSK exam. Warm, Dry, normal turgor, no rashes or lesions noted. - INFECTION CONTROL TRAVEL OUTSIDE OF THE [place] IN LAST 30 DAYS: No - RESPIRATORY O2 Sat by Pulse Oximetry: 98 Course - Re-evaluation Re-evalutation: 06/11/17 22:[address] Sprague: Imaging pending blood work ordered and pending saline started When results come back I will consult with Dr. Rodrigez. 06/11/17 23:56 CBC still pending morphine 2mg ordered for pain ice also provided 06/12/17 01:01 Dr. Rodrigez and Dr. Sprague arrived to eval the patient. Dr. Rodrigez recommends evaluation with orthopedics in the morning for further eval and management* No need for PO antibiotics at this time and to stay non-weightbearing. No WBC and afebrile. Vitals are otherwise stable and lab work currently unremarkable. We reviewed case with patient who is in agreement with discharge and plan. He will call Ortho in the morning. Pt to return to the ED with any worsening symptoms otherwise as needed. - Vital Signs Vital signs: Temp Pulse Resp BP Pulse Ox 98.2 F 105 H 20 140/93 H 98 06/11/17 21:06 06/11/17 21:06 06/11/17 21:06 06/11/17 21:06 06/11/17 21:06 - Laboratory Result Diagrams: 06/11/17 23:38 06/11/17 22:30 Discharge - Discharge Clinical Impression: Cellulitis Qualifiers: Site of cellulitis: extremity Site of cellulitis of extremity: lower extremity Laterality: right Qualified Code(s): L03.115 - Cellulitis of right lower limb Condition: Stable Disposition: HOME, SELF-CARE Additional Instructions: Remain nonweightbearing until evaluation with orthopedics Tylenol/ibuprofen as needed Keep the foot elevated and clean you may wash with soap and water As reviewed with you by Dr. Rodrigez and Dr. Sprague: Call Orthopedics when the office opens in the morning and request immediate appointment for your foot infection It is very important that you get an evaluation in the morning as your symptoms/ condition may worsen. Return to the ED with any other worsening or concerning symptoms including but not limited to fever, headache, chest pain, shortness of breath, wheezing, abdominal pain, n/v/d, red streaks, purulent discharge, worsening pain/redness. Forms: Elevated Blood Pressure Referrals: [facility]) [Provider Group] - 06/12/17
[2017-06-11] MEDS ORDERED: NORMAL SALINE 1000 ML 1,000 ML IV ONE (22:19)
--- NOTE | 2017-06-11 22:29 | RADIOLOGY REPORT (SQ) ---
EXAM DESCRIPTION: FOOT RIGHT COMPLETE COMPLETED DATE/TIME: 06/11/2017 10:20 pm REASON FOR STUDY: right foot pain with current infection COMPARISON: 05/18/2017. NUMBER OF VIEWS: Three views. TECHNIQUE: AP, lateral and oblique radiographic images acquired of the right foot. LIMITATIONS: None. FINDINGS: MINERALIZATION: Normal. BONES: No acute fracture or dislocation. No worrisome bone lesions. JOINTS: No effusions. SOFT TISSUES: Plantar soft tissue swelling with focal soft tissue defect. No foreign body. OTHER: No other significant finding. IMPRESSION: PLANTAR SOFT TISSUE SWELLING WITH ULCERATION. NO EVIDENCE OF ABSCESS. NO BONY INVOLVEM ENT. TECHNICAL DOCUMENTATION: JOB ID: [id number] [employer]- All Rights Reserved
[2017-06-11 23:07] LABS: ALANINE AMINOTRANSFERASE 39 U/L (21-72); ALBUMIN 4.1 g/dL (3.5-5.0); ALKALINE PHOSPHATASE 104 U/L (38-126); ANION GAP 11 (5-19); ASPARTATE AMINO TRANSFERASE 18 U/L (17-59); BILIRUBIN,DIRECT 0.3 mg/dL (0.0-0.4); BILIRUBIN,TOTAL 0.3 mg/dL (0.2-1.3); BLOOD UREA NITROGEN 26 mg/dL (7-20); CALCIUM 9.3 mg/dL (8.4-10.2); CARBON DIOXIDE 25 mmol/L (22-30); CHLORIDE 102 mmol/L (98-107); CREATININE RESULT 0.83 mg/dL (0.52-1.25); GLUCOSE 83 mg/dL (75-110); POTASSIUM 4.4 mmol/L (3.6-5.0); SODIUM 137.5 mmol/L (137-145); TOTAL PROTEIN 6.9 g/dL (6.3-8.2)
[2017-06-11 23:56] LABS: ABSOLUTE BASOPHILS # (AUTO) 0.1 10^3/uL (0.0-0.2); ABSOLUTE EOSINOPHILS # (AUTO) 0.3 10^3/uL (0.0-0.6); ABSOLUTE LYMPHOCYTES (AUTO) 3.8 10^3/uL (0.5-4.7); ABSOLUTE MONOCYTES (AUTO) 0.7 10^3/uL (0.1-1.4); ABSOLUTE NEUT (AUTO) 4.3 10^3/uL (1.7-8.2); BASOPHILS % (AUTO) 1.2 % (0-2); EOSINOPHILS % (AUTO) 3.5 % (0-6); HEMATOCRIT 35.7 % (37.9-51.0); HEMOGLOBIN 12.3 g/dL (13.5-17.0); HGB HCT DIFFERENCE 1.2; LYMPHOCYTES % (AUTO) 40.9 % (13-45); MEAN CORPUSCULAR HEMOGLOBIN 29.2 pg (27.0-33.4); MEAN CORPUSCULAR HGB CONC 34.6 g/dL (32.0-36.0); MEAN CORPUSCULAR VOLUME 85 fl (80-97); MONOCYTES % (AUTO) 7.6 % (3-13); RED BLOOD COUNT 4.21 10^6/uL (4.35-5.55); RED CELL DISTRIBUTION WIDTH 13.1 % (11.5-14.0); SEGMENTED NEUTROPHILS % (AUTO) 46.8 % (42-78); WHITE BLOOD COUNT 9.2 10^3/uL (4.0-10.5)
[2017-06-11] MEDS ORDERED: MORPHINE SULFATE 10 MG/ML INJ IV ONE (23:56)
[2017-06-12 02:19] VITALS: BP 135/80
--- NOTE | 2017-06-12 02:23 | CONSULTATION REPORT E ---
Consultation Report NAME: JO JACKMAN : 1985 AGE: 32Y DATE: 06/12/2017 TO: SHAWN RINCON M.D. FROM: Christo TRUJILLO, Requesting Physician CHIEF COMPLAINT: Persisting right foot pain. REPORT OF CONSULTATION: Patient is a 32-year-old white male with a 1 month history of right foot pain. Patient has been seen in the emergency department on several occasions, and was actually hospitalized in the middle of the month, where he underwent incision and drainage, and packing of the sole of the right foot. Patient was found to have an abscess clinically in the deep soft tissue of the temporal aspect of the plantar surface of the right foot. He underwent incision and drainage and packing by Dr. Dubon. Patient has been managed on oral antibiotics for several weeks. His cultures grew no infecting organisms. Patient has been in the [facility] in followup. The patient comes back to the emergency department this evening complaining of rash and increased pain. Physical exam findings were fairly unremarkable. Surgery was re-consulted. PAST MEDICAL AND SURGICAL HISTORY: Can be found in his History and Physical document which consists of musculoskeletal trauma and fractures. IMMUNIZATIONS: Up to date. REVIEW OF SYSTEMS: CONSTITUTIONAL: Patient denies nausea, vomiting, diarrhea. He denies fever. He is not on any antibiotics currently; last taken about a week ago. Remainder of review of systems unremarkable. PHYSICAL EXAM: GENERAL: Patient is in no acute distress. Patient does not appear sick. VITAL SIGNS: Stable. PSYCH: He is alert and oriented x4. EXTREMITIES: Focus on the foot: There is minimal increased edema on right compared to left. Range of motion is entirely intact. There is no cellulitis or inflammation. The central aspect of the right foot is an open wound with some devitalized soft tissue. The wound is without foul smell or drainage. LABORATORY PROFILE: This evening is completely unremarkable. IMPRESSION: Chronic wound right foot status post operative debridement of plantar wound 2 weeks ago, with no evidence of retained foreign body. Pain out of proportion with physical findings. RECOMMENDATIONS: 1. Patient does not need another empiric course of intravenous antibiotics at this time. 2. Suggest to continue pressor offloading; continue local wound care with soap and water, and Xeroform dressings. 3. Suggest the patient follow up with Orthopedist for further evaluation; patient may require additional foot debridement. DICTATING PHYSICIAN: SHAWN RINCON M.D. [id number] PHY#: [id number] ID: [id number] JOB#: [id number] ACCT: [id number] cc:SHAWN RINCON M.D. >
== END 2017-06-12 02:10 | disposition home or self-care (01) ==
LOC: ER 21:04
DX: L03.115 Cellulitis of right lower limb (principal); M79.671 Pain in right foot; Z98.890 Other specified postprocedural states; Z87.81 Personal history of (healed) traumatic fracture
CPT/HCPCS: 99284; 96361; 96374; 36415; 87040; 85025; 80053; 73630; J2270; J7030

== ENCOUNTER 2018-03-08 02:07 | Emergency (ER) | payer BC ==
[2018-03-08] MEDS ORDERED: NALOXONE HCL INJ 2 MG/2 ML DISP.SYRIN ONE (03:21)
[2018-03-08] MEDS ORDERED: NALOXONE HCL INJ/PF 0.4 MG/1 ML SDV ONE (03:21)
[2018-03-08] MEDS ORDERED: AMMONIA INHALANTS 10 AMPUL/BOX IH ONE (03:25)
[2018-03-08] MEDS ORDERED: NORMAL SALINE 1000 ML 1,000 ML IV ONE ×2 (03:43→03:48)
--- NOTE | 2018-03-08 03:50 | ER Document Report ---
ED General - General Mode of Arrival: Medic Information source: Parent TRAVEL OUTSIDE OF THE [place] IN LAST 30 DAYS: No <SUHASSHAYNALAM - Last Filed: 03/08/18 04:39> <CARLOS KEY - Last Filed: 03/08/18 07:18> <LUKE MARKS - Last Filed: 03/08/18 15:54> - General Chief Complaint: Accidental Overdose Stated Complaint: POSSIBLE OVERDOSE Time Seen by Provider: 03/08/18 03:09 Notes: Patient is a 32 year old male with a history of drug abuse presents to the emergency department via EMS accompanied by father complaining of a possible overdose. Father states he received a phone call from his daughter stating the patient was behaving abnormally further stating he was slurring his speech, hallucinating and was off balanced. Father states he believes the patient took Flexeril and Xanax although he is not currently prescribed Xanax. He states the patient is being managed at [facility] and his daughter filled the patient's prescriptions of Flexeril (3 times daily #90 with 3 refills), Lyrica, Metoprolol , Doxepin for him on 03/07/2018 around 0800. At bedside there is currently 7 pills of Flexeril missing. At bedside, patient is sleeping and responds only to ammonia capsule after which . Father states the patient recently moved in with him and recently been hanging out with friends with a known drug abuse history. He further states the patient slept all day Monday, Monday and Monday then went out with said friends and stayed awake for the next 3 days. Of significance, father states the patient has intermittent right foot swelling and pain after an abscess was treated in May 2017. (DANA DAI) Patient brought to emergency room by EMS for possible overdose. He was hallucinating, had slurred speech and pale skin. Blood pressure was 158/102 with EMS. After arriving emergency room the patient became unresponsive and blood pressure dropped to 90 systolic. His pupils were not constricted and were sluggishly reactive. His mouth was dry with thick saliva. Eventually did respond to ammonia capsule which caused him to sit up and try to avoid the ammonia. He did not become fully alert and continued to mumble and slurred his speech. Father reports he has a long history of substance, is recently been going to [facility]. His sister filled his medications that were prescribed at [facility] this evening probably around 7 PM. For an unknown reason, he is prescribed Flexeril 10 mg 3 times daily on a monthly basis. There were 7 pills missing from the bottle that was filled this evening. Father is quite concerned for his son's well-being, and does not understand the reasons behind these prescribed medications. He is also not sure his son is actually getting help to combat his substance abuse problems. Furthermore, he is concerned that his son may be creating some of his medications with friends to get other illicit substances. (CARLOS KEY) - Related Data Allergies/Adverse Reactions: No Known Allergies Allergy (Verified 05/26/17 15:51) Past Medical History - General Information source: Parent - Social History Smoking Status: Current Every Day Smoker Cigarette use (# per day): Yes Chew tobacco use (# tins/day): No Frequency of alcohol use: Occasional Drug Abuse: Cocaine, Marijuana, Prescription drugs Family History: Reviewed & Not Pertinent - Past Medical History Cardiac Medical History: Reports: Hx Hypertension Musculoskeletal Medical History: Reports Hx Musculoskeletal Trauma Traumatic Medical History: Reports: Hx Fractures - right heel and left elbow - Immunizations Immunizations up to date: Yes Hx Diphtheria, Pertussis, Tetanus Vaccination: Yes - 2014 <DANA DAI - Last Filed: 03/08/18 04:39> Review of Systems - Review of Systems -: Yes ROS unobtainable due to patient's medical condition <DANA DAI - Last Filed: 03/08/18 04:39> - Vital signs Vitals: Temp Resp Pulse Ox 98.2 F 12 94 03/08/18 02:09 03/08/18 02:09 03/08/18 02:09 - Notes Notes: GENERAL: Became unresponsive. Aroused to an ammonia cap. Drowsy. 90 systolic at bedside. HEAD: Normocephalic, atraumatic. EYES: Pupils equal, round, and reactive to light. Extraocular movements intact. ENT: Oral mucosa dry, tongue midline. Thick secretions from mouth. NECK: Full range of motion. Supple. Trachea midline. LUNGS: Clear to auscultation bilaterally, no wheezes, rales, or rhonchi. No respiratory distress. HEART: Regular rate and rhythm. No murmurs, gallops, or rubs. ABDOMEN: Soft, non-tender. Non-distended. Bowel sounds present in all 4 quadrants. EXTREMITIES: Moves all 4 extremities spontaneously. SKIN: Warm, dry, normal turgor. No rashes or lesions noted. (DANA DAI) Course - Laboratory Result Diagrams: 03/08/18 02:35 03/08/18 02:35 <DANA DAI - Last Filed: 03/08/18 04:39> - Laboratory Result Diagrams: 03/08/18 06:10 03/08/18 02:35 - EKG Interpretation by Tx EKG shows normal: Sinus rhythm, [place], QRS Complexes, ST-T Waves. abnormal: Intervals - Prolonged QT interval Rate: Normal - 65 Rhythm: NSR <CARLOS KEY - Last Filed: 03/08/18 07:18> - Laboratory Result Diagrams: 03/08/18 06:10 03/08/18 02:35 <LUKE MARKS - Last Filed: 03/08/18 15:54> - Vital Signs Vital signs: Temp Pulse Resp BP Pulse Ox 98.2 F 15 121/80 100 03/08/18 02:09 03/08/18 15:36 03/08/18 15:36 03/08/18 15:36 - Laboratory Laboratory results interpreted by nc: 03/08/18 03/08/18 03/08/18 02:35 02:35 06:10 RBC 4.34 L Hgb 12.4 L Hct 37.1 L RDW 14.1 H Monocytes % 13.3 H BUN 24 H Salicylates < 1.0 L Acetaminophen < 10 L Critical Care Note - Critical Care Note Total time excluding time spent on procedures (mins): 30 <CARLOS KEY - Last Filed: 03/08/18 07:18> Discharge <DANA DAI - Last Filed: 03/08/18 04:39> <CARLOS KEY - Last Filed: 03/08/18 07:18> <LUKE MARKS - Last Filed: 03/08/18 15:54> - Discharge Clinical Impression: Cocaine abuse, Benzodiazepine abuse, Dehydration Overdose Qualifiers: Encounter type: initial encounter Injury intent: undetermined intent Qualified Code(s): T50.904A - Poisoning by unspecified drugs, medicaments and biological substances, undetermined, initial encounter Hypotension Qualifiers: Hypotension type: unspecified hypotension type Qualified Code(s): I95.9 - Hypotension, unspecified Condition: Stable Disposition: HOME, SELF-CARE Additional Instructions: You were seen in the Emergency Department and evaluated by the Medical and Behavioral Health Teams for a drug overdose, and determined to be appropriate for discharge. You are encouraged to follow up with [facility], your outpatient provider for ongoing conversation about SAIOP and medication management. You are also encouraged to consider inpatient detox if you are having difficulty maintaining sobriety. COCAINE ABUSE: Cocaine causes many dangerous medical problems. Problems can occur even with "usual" amounts. Cocaine affects judgement, creating a sense of invulnerability. Cocaine users often make bad decisions that seem "great" at the time. Most cocaine users eventually will be hurt by bad job performance, damaged personal relations, crime, and unsafe sexual practices. Toxic effects of cocaine can include seizures, hallucinations, delusions, high blood pressure, heart damage, or sudden . There's always the risk of a "bad batch." But heart attacks, brain hemorrhages, or cardiac arrest can occur unpredictably even with "normal" use. Injection of cocaine is risky for abscesses, endocarditis (heart infection) , pneumonia, and AIDS. Withdrawal from cocaine often causes anxiety and drug cravings. Some users become paranoid and psychotic. Many treatment programs are available, but you must make the decision to quit. Medication can be prescribed to control the symptoms of cocaine toxicity (beta blockers or benzodiazepines). Withdrawal symptoms may require tranquilizers. NARCOTIC / OPIOID ABUSE: Narcotics and opiods are pain-relieving drugs that are often abused. They are addicting. Narcotics cause euphoria, but it often takes increasing amounts to "feel good" and avoid withdrawal symptoms. Overdose of narcotics causes small pupils, coma, and decreased breathing. It's a common cause of . Purity of street narcotics is unpredictable. Injection of narcotics is risky for abscesses, endocarditis (heart infection), pneumonia, and AIDS. Withdrawal from narcotics causes goose bumps, watery mouth, sweating, nasal congestion, muscle aches, abdominal cramps, vomiting, and diarrhea. There 's often restlessness and confusion. Treatment programs are available, but you must make the decision to quit. Medication (such as clonidine) can be prescribed to control the symptoms of withdrawal. AMPHETAMINE / METHAMPHETAMINE ABUSE: Amphetamines are addicting stimulants. Amphetamines overstimulate the nervous system and give a false feeling of power and mastery. These drugs may be obtained as prescription pills for weight loss, narcolepsy, or attention- deficit disorder. More often they're bought as an illegal street drug, methamphetamine (crank, crystal, speed). Using amphetamines repeatedly can lead to serious medical problems including malnutrition, severe depression, and paranoia. It can take increasing amounts to feel good. Eventually, there will be a "burn out." When you go off amphetamines there is a period of depression that may last for weeks or even months. High doses of amphetamines can cause seizures, confusion, hallucinations, delusions, high blood pressure, muscle damage, heart damage, or sudden . Many times these deadly complications occur even with "normal" doses. Injection of amphetamines is risky for developing abscesses, endocarditis ( heart infection), pneumonia, and AIDS. Withdrawal from amphetamines often causes anxiety, depression, and drug cravings. Some users become paranoid and psychotic. There may be cramps, nausea , and vomiting. Many treatment programs are available, but you must make the decision to quit. Medication can be prescribed to control the symptoms of amphetamine toxicity (beta blockers or benzodiazepines). Withdrawal symptoms may require tranquilizers. OVERDOSE / INGESTION: You have taken more medication than you should have. After your evaluation and care, it is felt that your overdose is not likely to be harmful or of any significant consequences to you and you are being discharged. In the future, you should be careful not to take more medications than what is prescribed for you. Although your overdose does not seem to be of any danger to you at this time, if you develop any unusual or unexpected symptoms after your discharge, you should return to the Emergency Department immediately for re-evaluation. INSTRUCTIONS FOR HOME CARE FOLLOWING DRUG OVERDOSAGE: The doctor feels it's safe for you to go home. You will need to be observed. If charcoal and a laxative was given to you, expect some loose black stools soon. Take no medications unless approved by a physician, including alcohol. If drowsy, lie on your stomach or side for sleeping to avoid aspiration if vomiting occurs. Take only liquids by mouth until there is no more nausea. FOR THE OBSERVER: Observe the patient for the next 24 hours and call or go to the hospital if any of the following are noted: prolonged or repeated vomiting, difficulty in arousing, convulsions (seizures or fits), fever, persistent cough, breathing that is too slow or too rapid, or confused or bizarre behavior. If a counselling visit has been arranged, make sure the patient attends. Call the physician or poison control if you have questions. FOLLOW-UP CARE: If you have been referred to a physician for follow-up care, call the physician s office for an appointment as you were instructed or within the next two days. If you experience worsening or a significant change in your symptoms, notify the physician immediately or return to the Emergency Department at any time for re-evaluation. Scribe Attestation: 03/08/18 04:16 I personally performed the services described in the documentation, reviewed and edited the documentation which was dictated to the scribe in my presence, and it accurately records my words and actions. (CARLOS KEY) Scribe Documentation - Scribe Written by Santhosh:: Santhosh Shetty, 03/08/2018 04:16 acting as scribe for :: Colton <DANA DAI - Last Filed: 03/08/18 04:39>
[2018-03-08 03:57] LABS: ALANINE AMINOTRANSFERASE 26 U/L (21-72); ALBUMIN 4.4 g/dL (3.5-5.0); ALKALINE PHOSPHATASE 112 U/L (38-126); ANION GAP 16 (5-19); ASPARTATE AMINO TRANSFERASE 29 U/L (17-59); BILIRUBIN,DIRECT 0.4 mg/dL (0.0-0.4); BILIRUBIN,TOTAL 0.4 mg/dL (0.2-1.3); BLOOD UREA NITROGEN 24 mg/dL (7-20); CALCIUM 9.3 mg/dL (8.4-10.2); CARBON DIOXIDE 23 mmol/L (22-30); CHLORIDE 104 mmol/L (98-107); CREATINE KINASE 91 U/L (55-170); GLUCOSE 91 mg/dL (75-110); POTASSIUM 4.3 mmol/L (3.6-5.0); SODIUM 142.6 mmol/L (137-145); TOTAL PROTEIN 7.7 g/dL (6.3-8.2)
[2018-03-08 04:07] LABS: ALCOHOL < 10 mg/dL (NONE DETECTED)
[2018-03-08 04:59] LABS: APPEARANCE,URINE CLEAR; BILIRUBIN,URINE NEGATIVE (NEGATIVE); COLOR,URINE YELLOW; GLUCOSE, URINE NEGATIVE (NEGATIVE); KETONES,URINE NEGATIVE (NEGATIVE); LEUKOCYTE ESTERASE,URINE NEGATIVE (NEGATIVE); NITRITE,URINE NEGATIVE (NEGATIVE); PROTEIN,URINE NEGATIVE (NEGATIVE); URINE SPECIFIC GRAVITY 1.021; UROBILINOGEN,URINE NEGATIVE mg/dL (<2.0)
[2018-03-08 05:32] LABS: URINE AMPHETAMINES SCREEN NEGATIVE; URINE BARBITURATES SCREEN NEGATIVE; URINE BENZODIAZEPINES SCREEN UNCONFIRMED POSITIVE; URINE COCAINE SCREEN UNCONFIRMED POSITIVE; URINE MARIJUANA (THC) SCREEN NEGATIVE; URINE METHADONE SCREEN NEGATIVE; URINE PHENCYCLIDINE SCREEN NEGATIVE
[2018-03-08 06:22] LABS: ABSOLUTE BASOPHILS # (AUTO) 0.1 10^3/uL (0.0-0.2); ABSOLUTE EOSINOPHILS # (AUTO) 0.1 10^3/uL (0.0-0.6); ABSOLUTE LYMPHOCYTES (AUTO) 2.6 10^3/uL (0.5-4.7); ABSOLUTE NEUT (AUTO) 3.4 10^3/uL (1.7-8.2); BASOPHILS % (AUTO) 0.9 % (0-2); HEMATOCRIT 37.1 % (37.9-51.0); HEMOGLOBIN 12.4 g/dL (13.5-17.0); MEAN CORPUSCULAR HEMOGLOBIN 28.6 pg (27.0-33.4); MEAN CORPUSCULAR HGB CONC 33.4 g/dL (32.0-36.0); MEAN CORPUSCULAR VOLUME 86 fl (80-97); MONOCYTES % (AUTO) 13.3 % (3-13); PLATELET COUNT 245 10^3/uL (150-450); RED BLOOD COUNT 4.34 10^6/uL (4.35-5.55); RED CELL DISTRIBUTION WIDTH 14.1 % (11.5-14.0); SEGMENTED NEUTROPHILS % (AUTO) 47.8 % (42-78); TOTAL CELLS COUNTED % (AUTO) 100 %; WHITE BLOOD COUNT 7.1 10^3/uL (4.0-10.5)
--- NOTE | 2018-03-08 07:54 | EKG REPORT ---
SEVERITY:- ABNORMAL ECG - SINUS RHYTHM PROLONGED QT INTERVAL : Confirmed by: Jayleen Mendez MD 08-Mar-2018 07:52:57
--- NOTE | 2018-03-08 09:18 | ER Document Report ---
Doctor's Note Notes: 03/08/18 09:17 Patient is a 33-year-old male who presented for possible substance abuse overdose reported by father. Substances include possibly cocaine and Flexeril. Patient has stable vital signs. Labs as recorded. Awaiting psychiatry evaluation. 03/08/18 09:19 I have noticed the Tylenol and salicylate level not ordered. I have placed an order for these levels at this time. 03/08/18 13:11 Tylenol and salicylate test recorded. 03/08/18 15:33 Labs as recorded. No swelling or tenderness to the right foot. Patient is oriented 4 at this time. He denies any drug overdose. He denies any suicidal homicidal ideations. The therapist is here from [facility] and states that she can take the patient directly back to that facility. The psychology team is seen and evaluated the patient and they do not believe that the patient meets criteria for IVC. Patient will therefore be discharged directly with a counselor and escorted over to [facility]. Family is pleased with this plan.
[2018-03-08 09:55] LABS: ACETAMINOPHEN < 10 ug/mL (10-30); SALICYLATE < 1.0 mg/dL (2.0-20.0)
[2018-03-08 15:38] VITALS: BP 121/80
== END 2018-03-08 16:01 | disposition home or self-care (01) ==
LOC: ER 02:07
DX: T48.1X1A Poisoning by skeletal muscle relaxants [neuromuscular blocking agents], accidental (unintentional), initial encounter (principal); T42.4X1A Poisoning by benzodiazepines, accidental (unintentional), initial encounter; F14.10 Cocaine abuse, uncomplicated; F15.10 Other stimulant abuse, uncomplicated; I95.9 Hypotension, unspecified; E86.0 Dehydration; X58.XXXA Exposure to other specified factors, initial encounter
CPT/HCPCS: 93005; 99285; 96360; 96361; 36415; 80307 ×4; 82550; 85025; 80053; 81001; 84484; 93010; J7030

== ENCOUNTER 2019-10-26 21:33 | Emergency (ER) | payer SELFPAY ==
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
[2019-10-26 22:38] VITALS: BP 128/70
[2019-10-26 22:51] LABS: ABSOLUTE BASOPHILS # (AUTO) 0.1 10^3/uL (0.0-0.2); ABSOLUTE EOSINOPHILS # (AUTO) 0.2 10^3/uL (0.0-0.6); ABSOLUTE LYMPHOCYTES (AUTO) 2.8 10^3/uL (0.5-4.7); ABSOLUTE MONOCYTES (AUTO) 0.7 10^3/uL (0.1-1.4); ABSOLUTE NEUT (AUTO) 3.8 10^3/uL (1.7-8.2); BASOPHILS % (AUTO) 1.8 % (0-2); EOSINOPHILS % (AUTO) 2.2 % (0-6); HEMATOCRIT 43.9 % (37.9-51.0); HEMOGLOBIN 14.8 g/dL (13.5-17.0); LYMPHOCYTES % (AUTO) 36.6 % (13-45); MEAN CORPUSCULAR HEMOGLOBIN 28.3 pg (27.0-33.4); MEAN CORPUSCULAR HGB CONC 33.6 g/dL (32.0-36.0); MEAN CORPUSCULAR VOLUME 84 fl (80-97); MONOCYTES % (AUTO) 9.5 % (3-13); PLATELET COUNT 119 10^3/uL (150-450); RED BLOOD COUNT 5.21 10^6/uL (4.35-5.55); RED CELL DISTRIBUTION WIDTH 14.1 % (11.5-14.0); SEGMENTED NEUTROPHILS % (AUTO) 49.9 % (42-78); TOTAL CELLS COUNTED % (AUTO) 100 %; WHITE BLOOD COUNT 7.6 10^3/uL (4.0-10.5)
[2019-10-26 23:09] LABS: ALBUMIN 4.2 g/dL (3.5-5.0); ALKALINE PHOSPHATASE 96 U/L (38-126); ANION GAP 9 (5-19); ASPARTATE AMINO TRANSFERASE 29 U/L (17-59); BILIRUBIN,DIRECT 0.2 mg/dL (0.0-0.4); BILIRUBIN,TOTAL 0.7 mg/dL (0.2-1.3); BLOOD UREA NITROGEN 27 mg/dL (7-20); CALCIUM 9.1 mg/dL (8.4-10.2); CARBON DIOXIDE 28 mmol/L (22-30); CHLORIDE 103 mmol/L (98-107); GLUCOSE 105 mg/dL (75-110); POTASSIUM 3.7 mmol/L (3.6-5.0); TOTAL PROTEIN 7.4 g/dL (6.3-8.2)
[2019-10-26 23:12] LABS: ACETAMINOPHEN < 10 ug/mL (10-30); ALCOHOL < 10 mg/dL (NONE DETECTED)
[2019-10-27 01:27] LABS: APPEARANCE,URINE CLEAR; BILIRUBIN,URINE NEGATIVE (NEGATIVE); COLOR,URINE YELLOW; GLUCOSE, URINE NEGATIVE (NEGATIVE); KETONES,URINE NEGATIVE (NEGATIVE); LEUKOCYTE ESTERASE,URINE NEGATIVE (NEGATIVE); NITRITE,URINE NEGATIVE (NEGATIVE); PROTEIN,URINE NEGATIVE (NEGATIVE); URINE SPECIFIC GRAVITY 1.026; UROBILINOGEN,URINE NEGATIVE mg/dL (<2.0)
[2019-10-27 01:41] LABS: URINE BARBITURATES SCREEN NEGATIVE; URINE COCAINE SCREEN NEGATIVE; URINE MARIJUANA (THC) SCREEN NEGATIVE; URINE METHADONE SCREEN NEGATIVE; URINE PHENCYCLIDINE SCREEN NEGATIVE
[2019-10-27 01:45] LABS: URINE BENZODIAZEPINES SCREEN UNCONFIRMED POSITIVE
--- NOTE | 2019-10-28 00:43 | EKG REPORT ---
SEVERITY:- BORDERLINE ECG - SINUS RHYTHM BORDERLINE PROLONGED QT INTERVAL : Confirmed by: Leander Mccarthy 28-Oct-2019 00:42:15
== END 2019-10-27 02:32 | disposition other institution (70) ==
LOC: ER 21:33
DX: F13.10 Sedative, hypnotic or anxiolytic abuse, uncomplicated (principal); F11.10 Opioid abuse, uncomplicated; F17.210 Nicotine dependence, cigarettes, uncomplicated; I10 Essential (primary) hypertension
CPT/HCPCS: 36415; 80053; 80307; 81001; 85025; 93005; 93010; 99285